=== PATIENT | female | born 1980 | race Caucasian/White ===

== ENCOUNTER → 2017-10-31 | Outpatient (REF) | payer OTHER ==
[2017-10-31 19:01] LABS: APPEARANCE, URINE HAZY (CLEAR); BACTERIA, URINE AUTO NEGATIVE (NEGATIVE); BILIRUBIN, URINE AUTO NEGATIVE (NEGATIVE); BLOOD, URINE BLOOD NEGATIVE (NEGATIVE); COLOR, URINE YELLOW (YELLOW); GLUCOSE, URINE (UA) AUTO NEGATIVE (NEGATIVE); KETONE, URINE AUTO NEGATIVE (NEGATIVE); LEUKOCYTE ESTERASE, URINE AUTO NEGATIVE (NEGATIVE); MUCUS, URINE SMALL (NEGATIVE); NITRITE, URINE AUTO NEGATIVE (NEGATIVE); PROTEIN, URINE AUTO NEGATIVE (NEGATIVE); RBC, URINE AUTO 1 /HPF (0-3); SPECIFIC GRAVITY URINE AUTO 1.023 (1.002-1.035); SQUAMOUS EPITHELIAL CELL UR AU 1 /HPF (0-6); WBC, URINE AUTO 1 /HPF (0-3)
== END ==
LOC: M SMT 16:53
DX: N20.0 Calculus of kidney (principal)

== ENCOUNTER 2017-12-17 06:29 | Day surgery (SDC) | payer OTHER ==
[2017-12-17] MEDS ORDERED: NS 1,000 ML IV (06:45)
[2017-12-17] MEDS ORDERED: ePHEDrine INJ 50 MG/ML VIAL As Ordered (07:13)
[2017-12-17] MEDS ORDERED: PROPOFOL 200 MG/20 ML VIAL As Ordered ×2 (07:13→07:29)
== END 2017-12-17 09:08 | disposition home or self-care (01) ==
LOC: M OPP 06:29
DX: R10.30 Lower abdominal pain, unspecified (principal); K59.00 Constipation, unspecified; K64.8 Other hemorrhoids; Z87.442 Personal history of urinary calculi; Z88.1 Allergy status to other antibiotic agents
CPT/HCPCS: 45380

== ENCOUNTER → 2021-02-22 | Outpatient (CLI) | payer OTHER ==
[~2021-02-22] MED LIST: CYAN500T14 PO; MULT1TAB10 PO
--- NOTE | 2021-02-23 05:08 | REP ---
INDICATION: PULSITILE TENITIS, RIGHT EAR/ CT 1ST COMPARISON: None. TECHNIQUE: Burgess scale and color Doppler evaluation using linear high frequency transducer Findings: FINDINGS: Two-dimensional burgess scale and color images demonstrate normal arterial lumen with laminar flow and no appreciable narrowing. Color Doppler interrogation demonstrates normal arterial wave patterns and velocities with no significant spectral broadening. Normal flow direction is appreciated in the bilateral vertebral arteries. ICA peak systolic velocity: Right 103.8 cm/s; Left 107.4 cm/s ICA diastolic velocity: Right 53.5 cm/s; Left 45.2 cm/s ECA peak systolic velocity: Right 84.8 cm/s; Left 72.0 cm/s CCA peak systolic velocity: Right 107.7 cm/s; Left 155.0 cm/s ICA/CCA ratio: Right 0.96 cm/s; Left 0.69 cm/s IMPRESSION: No hemodynamically significant areas of narrowing or stenosis appreciated. Based on set standards narrowing falls within the normal range. <Electronically signed by Navjot Vogel > 02/23/21 [id number]
--- NOTE | 2021-02-23 07:32 | REPVR ---
PROCEDURE INFORMATION: Exam: CT Temporal Bones Without Contrast. Exam date and time: 02/22/2021 4:09 PM Age: 40 years old Clinical indication: Other: Pulsitile tinnitus, right ear/ US after TECHNIQUE: Imaging protocol: Computed tomography images of the temporal bones without contrast. Radiation optimization: All CT scans at this facility use at least one of these dose optimization techniques: automated exposure control; mA and/or kV adjustment per patient size (includes targeted exams where dose is matched to clinical indication); or iterative reconstruction. COMPARISON: No relevant prior studies available. FINDINGS: Right inner ear: Normal. Right ossicles and middle ear: Normal. The middle ear ossicles are intact. Right external auditory canal: Normal. Right facial nerve canal: Normal. Right jugular foramen: No jugular dehiscence. Right carotid canal: No aberrant carotid canal. Right mastoid air cells: Normal. No mastoid effusions. Left inner ear: Normal. Left ossicles and middle ear: Normal. The middle ear ossicles are intact. Left external auditory canal: Normal. Left facial nerve canal: Normal. Left jugular foramen: No jugular dehiscence. Left carotid canal: No aberrant carotid canal. Left mastoid air cells: Normal. No mastoid effusions. Soft tissues: Unremarkable. IMPRESSION: No acute findings. Electronically signed by: Seema Hannah On 02/23/2021 07:32:14 AM
== END ==
LOC: M RAD 15:45
PROVIDERS: ATTEND Otolaryngology
DX: H93.A1 Pulsatile tinnitus, right ear (principal)